=== PATIENT | male | born 1935 | race Two or more races ===

== ENCOUNTER 2023-08-02 09:30 | Inpatient (IN) | payer OTHER ==
[~2023-08-02] VITALS: Ht 157.5 cm; Wt 63.5 kg
[2023-08-02 12:37] LABS: INR 1.13; PARTIAL THROMBOPLASTIN TIME 30.3 SECONDS (22.0-34.0); PROTHROMBIN TIME 11.8 SECONDS (9.0-11.5)
[2023-08-02 12:39] LABS: HEMATOCRIT 30.6 % (39.0-48.0); HEMOGLOBIN 9.1 g/dL (13-16.00); MEAN CORPUSCULAR HEMOGLOBIN 19.1 pg (27.00-32.0); MEAN CORPUSCULAR HGB CONC 29.8 g/dl (32.0-36.0); PLATELET COUNT 768 K/uL (150-450); RED BLOOD COUNT 4.78 M/uL (4.00-6.00); RED CELL DISTRIBUTION WIDTH 19.5 % (11.5-14.5)
[2023-08-02 12:42] LABS: ALBUMIN 2.8 gm/dL (3.4-5.0); BILIRUBIN TOTAL 0.37 mg/dL (0.3-1.2); CALCIUM 9.3 mg/dL (8.5-10.1); CREATININE SERUM 0.68 mg/dL (0.70-1.30); GFR 110.3; GLOBULINA 5.6 G/DL (2.4-3.5); POTASSIUM 4.39 mEq/L (3.5-5.1); TOTAL PROTEIN 8.4 gm/dL (6.4-8.2)
[2023-08-02 14:02] LABS: URINE APPEARANCE Turbid; URINE BILIRRUBIN Negative (NEGATIVE); URINE BLOOD Negative; URINE COLOR Dark Yellow; URINE GLUCOSE Negative (NEGATIVE); URINE LEUKOCYTE Trace; URINE NITRATE Negative; URINE PROTEIN 30 (NEGATIVE)
[2023-08-02 14:07] LABS: URINE BACTERIA 118.4 uL (0.0-1933); URINE EPITHELIAL CELLS 12.3 uL (0.0-38.8); URINE RBC 18.9 uL (0.0-20.8); URINE WBC 3.3 uL (0.0-23.2)
[2023-08-03] MEDS ORDERED: FLONASE16 GM (08:00)
[2023-08-03] MEDS ORDERED: GABAPENTIN800 M1 (08:01)
[2023-08-03] MEDS ORDERED: MELOXICAM15 MG (08:01)
[2023-08-03] MEDS ORDERED: THEOPHYLLINE A300 M1 (08:01)
[2023-08-03] MEDS ORDERED: CARVEDILOL12.5 M1 (08:01)
[2023-08-03] MEDS ORDERED: GABAPENTIN300 M2 (08:01)
[2023-08-03] MEDS ORDERED: MONTELUKAST SOD10 MG (08:01)
[2023-08-03] MEDS ORDERED: ISOSORBIDE MONO30 M2 (08:01)
[2023-08-03 15:14] LABS: CREATININE SERUM 0.55 mg/dL (0.70-1.30); GFR 140.91; POTASSIUM 4.3 mEq/L (3.5-5.1)
[2023-08-04 08:12] LABS: PH,URINE 5.5 (5.0-8.0); URINE APPEARANCE Clear; URINE BACTERIA 113.3 uL (0.0-1933); URINE BILIRRUBIN Negative (NEGATIVE); URINE BLOOD Negative; URINE COLOR Yellow; URINE EPITHELIAL CELLS 12.8 uL (0.0-38.8); URINE GLUCOSE Negative (NEGATIVE); URINE LEUKOCYTE Negative; URINE NITRATE Negative; URINE PROTEIN Negative (NEGATIVE); URINE RBC 5.8 uL (0.0-20.8); URINE WBC 3.3 uL (0.0-23.2)
[2023-08-04 08:13] LABS: ABG PH 7.423 (7.35-7.45); ABG PO2 68.9 mmHg (80-100); ABG pCO2 35.6 mmHg (35-45); SaO2 93.9 %
[2023-08-04 08:14] LABS: BASE EXCESS -1.1 mmol/l; BICARBONATE 22.7 mmol/l (23-25); Tco2 23.8 mmol/l; allen test SATISFACTORY; o2 21 %; puncture site RADIAL RIGHT
[2023-08-04 15:03] LABS: MEAN CORPUSCULAR HEMOGLOBIN 19.7 pg (27.00-32.0); MEAN CORPUSCULAR HGB CONC 30.2 g/dl (32.0-36.0); PLATELET COUNT 643 K/uL (150-450); RED BLOOD COUNT 5.05 M/uL (4.00-6.00); RED CELL DISTRIBUTION WIDTH 20.3 % (11.5-14.5)
[2023-08-04 15:09] LABS: MEAN CELL VOLUME 65.2 fL (80.0-100.00)
[2023-08-04 15:23] LABS: ALBUMIN 2.5 gm/dL (3.4-5.0); BILIRUBIN TOTAL 1.1 mg/dL (0.3-1.2); CALCIUM 8.4 mg/dL (8.5-10.1); CREATININE SERUM 0.57 mg/dL (0.70-1.30); GFR 135.22; GLOBULINA 4.1 G/DL (2.4-3.5); MAGNESIUM 2.2 mg/dL (1.8-2.4); PHOSPHOROUS 3.1 mg/dL (2.5-4.9); POTASSIUM 5.21 mEq/L (3.5-5.1); TOTAL PROTEIN 6.6 gm/dL (6.4-8.2)
[2023-08-04 15:30] LABS: C-REACTIVE PROTEIN 18.4 MG/DL (0.00-0.29)
[2023-08-05 10:59] LABS: HEMOGLOBIN 10.6 g/dL (13-16.00); MEAN CELL VOLUME 66.5 fL (80.0-100.00); MEAN CORPUSCULAR HEMOGLOBIN 20.7 pg (27.00-32.0); MEAN CORPUSCULAR HGB CONC 31.1 g/dl (32.0-36.0); PLATELET COUNT 596 K/uL (150-450); RED CELL DISTRIBUTION WIDTH 22.1 % (11.5-14.5)
[2023-08-05 18:56] LABS: HEMATOCRIT 32.4 % (39.0-48.0); MEAN CELL VOLUME 67.2 fL (80.0-100.00); MEAN CORPUSCULAR HEMOGLOBIN 20.8 pg (27.00-32.0); MEAN CORPUSCULAR HGB CONC 30.9 g/dl (32.0-36.0); PLATELET COUNT 616 K/uL (150-450); RED BLOOD COUNT 4.82 M/uL (4.00-6.00); RED CELL DISTRIBUTION WIDTH 22.6 % (11.5-14.5)
[2023-08-05 19:14] LABS: ALBUMIN 2.1 gm/dL (3.4-5.0); CALCIUM 7.6 mg/dL (8.5-10.1); CREATININE SERUM 0.48 mg/dL (0.70-1.30); GFR 164.88; MAGNESIUM 1.9 mg/dL (1.8-2.4); PHOSPHOROUS 3.8 mg/dL (2.5-4.9); POTASSIUM 4.19 mEq/L (3.5-5.1)
[2023-08-05 19:29] LABS: ABG PH 7.308 (7.35-7.45); ABG PO2 131.2 mmHg (80-100)
[2023-08-05 19:30] LABS: BASE EXCESS -2.4 mmol/l; BICARBONATE 24.5 mmol/l (23-25); SaO2 98.6 %; allen test SATISFACTORY; o2 44 %; puncture site RADIAL LEFT
[2023-08-06 10:37] LABS: ABG PH 7.338 (7.35-7.45)
[2023-08-06 10:38] LABS: ABG PO2 57.9 mmHg (80-100); ABG pCO2 47.7 mmHg (35-45)
[2023-08-06 10:39] LABS: BASE EXCESS -1.3 mmol/l; SaO2 87.6 %; Tco2 26.5 mmol/l
[2023-08-06 10:40] LABS: allen test SATISFACTORY; o2 36 %; puncture site RADIAL LEFT
[2023-08-06 13:43] LABS: MEAN CELL VOLUME 67.8 fL (80.0-100.00); MEAN CORPUSCULAR HEMOGLOBIN 21.2 pg (27.00-32.0); MEAN CORPUSCULAR HGB CONC 31.3 g/dl (32.0-36.0); PLATELET COUNT 538 K/uL (150-450); RED BLOOD COUNT 4.72 M/uL (4.00-6.00); RED CELL DISTRIBUTION WIDTH 22.7 % (11.5-14.5)
[2023-08-06 13:49] LABS: URINE APPEARANCE Clear; URINE BILIRRUBIN Negative (NEGATIVE); URINE BLOOD Trace; URINE COLOR Yellow; URINE GLUCOSE Negative (NEGATIVE); URINE LEUKOCYTE Trace; URINE NITRATE Negative; URINE PROTEIN Negative (NEGATIVE)
[2023-08-06 13:53] LABS: URINE BACTERIA 36.5 uL (0.0-1933); URINE EPITHELIAL CELLS 8.1 uL (0.0-38.8); URINE RBC 10.2 uL (0.0-20.8); URINE WBC 4.9 uL (0.0-23.2)
[2023-08-06 14:13] LABS: ABG pCO2 55.4 mmHg (35-45)
[2023-08-06 14:14] LABS: ABG PO2 87.5 mmHg (80-100); BASE EXCESS -1.9 mmol/l; BICARBONATE 25.7 mmol/l (23-25); SaO2 95.1 %; Tco2 27.4 mmol/l
[2023-08-06 14:15] LABS: allen test SATISFACTORY; o2 50 %; puncture site RADIAL RIGHT
[2023-08-06 14:16] LABS: ALBUMIN 1.9 gm/dL (3.4-5.0); CALCIUM 7.7 mg/dL (8.5-10.1); CREATININE SERUM 0.47 mg/dL (0.70-1.30); GFR 168.93; MAGNESIUM 1.9 mg/dL (1.8-2.4); PHOSPHOROUS 3.6 mg/dL (2.5-4.9); POTASSIUM 3.79 mEq/L (3.5-5.1)
[2023-08-07 08:48] LABS: CALCIUM 7.7 mg/dL (8.5-10.1); CREATININE SERUM 0.53 mg/dL (0.70-1.30); GFR 147.06; MAGNESIUM 1.9 mg/dL (1.8-2.4); PHOSPHOROUS 2.9 mg/dL (2.5-4.9); POTASSIUM 3.84 mEq/L (3.5-5.1)
[2023-08-07 09:38] LABS: HEMATOCRIT 30.7 % (39.0-48.0); MEAN CORPUSCULAR HGB CONC 30.1 g/dl (32.0-36.0); RED BLOOD COUNT 4.48 M/uL (4.00-6.00); RED CELL DISTRIBUTION WIDTH 22.7 % (11.5-14.5)
[2023-08-07 11:02] LABS: HEMOGLOBIN 9.2 g/dL (13-16.00); MEAN CELL VOLUME 68.6 fL (80.0-100.00); MEAN CORPUSCULAR HEMOGLOBIN 20.5 pg (27.00-32.0); PLATELET COUNT 509 K/uL (150-450)
[2023-08-09 09:27] LABS: ABG PH 7.381 (7.35-7.45); ABG PO2 95.3 mmHg (80-100); ABG pCO2 47.8 mmHg (35-45); BASE EXCESS 1.8 mmol/l; BICARBONATE 27.7 mmol/l (23-25); SaO2 97.2 %; Tco2 29.1 mmol/l
[2023-08-09 09:28] LABS: allen test SATISFACTORY; o2 40 %; puncture site RADIAL RIGHT
[2023-08-10 09:17] LABS: HEMATOCRIT 26.2 % (39.0-48.0); MEAN CORPUSCULAR HGB CONC 31.8 g/dl (32.0-36.0); PLATELET COUNT 503 K/uL (150-450); RED BLOOD COUNT 3.85 M/uL (4.00-6.00); RED CELL DISTRIBUTION WIDTH 23.9 % (11.5-14.5)
[2023-08-10 09:18] LABS: HEMOGLOBIN 8.3 g/dL (13-16.00); MEAN CELL VOLUME 68.1 fL (80.0-100.00); MEAN CORPUSCULAR HEMOGLOBIN 21.5 pg (27.00-32.0)
[2023-08-10 09:53] LABS: CALCIUM 7.5 mg/dL (8.5-10.1); CREATININE SERUM 0.46 mg/dL (0.70-1.30); GFR 173.18; MAGNESIUM 1.7 mg/dL (1.8-2.4); PHOSPHOROUS 2.4 mg/dL (2.5-4.9)
[2023-08-10 09:57] LABS: POTASSIUM 2.28 mEq/L (3.5-5.1)
[2023-08-11 17:33] LABS: HEMATOCRIT 33.8 % (39.0-48.0); HEMOGLOBIN 10.7 g/dL (13-16.00); MEAN CELL VOLUME 74.5 fL (80.0-100.00); MEAN CORPUSCULAR HEMOGLOBIN 23.7 pg (27.00-32.0); MEAN CORPUSCULAR HGB CONC 31.8 g/dl (32.0-36.0); PLATELET COUNT 503 K/uL (150-450); RED BLOOD COUNT 4.53 M/uL (4.00-6.00)
[2023-08-11 17:34] LABS: RED CELL DISTRIBUTION WIDTH 27.2 % (11.5-14.5)
[2023-08-11 17:46] LABS: CREATININE SERUM 0.58 mg/dL (0.70-1.30); GFR 132.53; MAGNESIUM 2.3 mg/dL (1.8-2.4); PHOSPHOROUS 3.3 mg/dL (2.5-4.9)
[2023-08-11 17:52] LABS: POTASSIUM 2.85 mEq/L (3.5-5.1)
[2023-08-12 06:07] LABS: HEMATOCRIT 33.9 % (39.0-48.0); MEAN CELL VOLUME 74.5 fL (80.0-100.00); MEAN CORPUSCULAR HEMOGLOBIN 24.2 pg (27.00-32.0); MEAN CORPUSCULAR HGB CONC 32.5 g/dl (32.0-36.0); PLATELET COUNT 519 K/uL (150-450); RED BLOOD COUNT 4.55 M/uL (4.00-6.00)
[2023-08-12 06:47] LABS: BILIRUBIN TOTAL 0.94 mg/dL (0.3-1.2); CALCIUM 7.9 mg/dL (8.5-10.1); CREATININE SERUM 0.58 mg/dL (0.70-1.30); GFR 132.53; GLOBULINA 3.7 G/DL (2.4-3.5); MAGNESIUM 2.6 mg/dL (1.8-2.4); PHOSPHOROUS 3.4 mg/dL (2.5-4.9); POTASSIUM 3.68 mEq/L (3.5-5.1); TOTAL PROTEIN 5.7 gm/dL (6.4-8.2)
[2023-08-14 13:11] LABS: CALCIUM 7.6 mg/dL (8.5-10.1); CREATININE SERUM 0.47 mg/dL (0.70-1.30); GFR 168.93; MAGNESIUM 2.1 mg/dL (1.8-2.4); PHOSPHOROUS 2.2 mg/dL (2.5-4.9)
[2023-08-14 13:13] LABS: HEMATOCRIT 31.4 % (39.0-48.0); HEMOGLOBIN 10.1 g/dL (13-16.00); MEAN CORPUSCULAR HEMOGLOBIN 24.4 pg (27.00-32.0); MEAN CORPUSCULAR HGB CONC 32.1 g/dl (32.0-36.0); PLATELET COUNT 406 K/uL (150-450); RED BLOOD COUNT 4.13 M/uL (4.00-6.00)
[2023-08-14 13:14] LABS: POTASSIUM 2.78 mEq/L (3.5-5.1)
[2023-08-14 13:21] LABS: RED CELL DISTRIBUTION WIDTH 30.5 % (11.5-14.5)
[2023-08-15 08:44] LABS: HEMATOCRIT 28.3 % (39.0-48.0); HEMOGLOBIN 9.2 g/dL (13-16.00); MEAN CELL VOLUME 75.3 fL (80.0-100.00); MEAN CORPUSCULAR HEMOGLOBIN 24.5 pg (27.00-32.0); MEAN CORPUSCULAR HGB CONC 32.6 g/dl (32.0-36.0); PLATELET COUNT 402 K/uL (150-450); RED BLOOD COUNT 3.76 M/uL (4.00-6.00)
[2023-08-15 08:51] LABS: RED CELL DISTRIBUTION WIDTH 30.7 % (11.5-14.5)
[2023-08-17 06:55] LABS: ALBUMIN 1.6 gm/dL (3.4-5.0); BILIRUBIN TOTAL 0.7 mg/dL (0.3-1.2); CALCIUM 7.4 mg/dL (8.5-10.1); CREATININE SERUM 0.45 mg/dL (0.70-1.30); GFR 177.63; GLOBULINA 3.6 G/DL (2.4-3.5); MAGNESIUM 2.1 mg/dL (1.8-2.4); PHOSPHOROUS 2.4 mg/dL (2.5-4.9); TOTAL PROTEIN 5.2 gm/dL (6.4-8.2)
[2023-08-17 07:04] LABS: POTASSIUM 2.75 mEq/L (3.5-5.1)
[2023-08-17 07:29] LABS: HEMOGLOBIN 9.4 g/dL (13-16.00); MEAN CELL VOLUME 75.2 fL (80.0-100.00); MEAN CORPUSCULAR HEMOGLOBIN 24.3 pg (27.00-32.0); MEAN CORPUSCULAR HGB CONC 32.3 g/dl (32.0-36.0); PLATELET COUNT 497 K/uL (150-450); RED BLOOD COUNT 3.86 M/uL (4.00-6.00)
[2023-08-17 07:43] LABS: RED CELL DISTRIBUTION WIDTH 31.5 % (11.5-14.5)
[2023-08-18 07:55] LABS: HEMATOCRIT 30.1 % (39.0-48.0); HEMOGLOBIN 9.5 g/dL (13-16.00); MEAN CELL VOLUME 76.4 fL (80.0-100.00); MEAN CORPUSCULAR HEMOGLOBIN 24.2 pg (27.00-32.0); MEAN CORPUSCULAR HGB CONC 31.7 g/dl (32.0-36.0); PLATELET COUNT 531 K/uL (150-450); RED BLOOD COUNT 3.94 M/uL (4.00-6.00)
[2023-08-18 07:59] LABS: RED CELL DISTRIBUTION WIDTH 31.4 % (11.5-14.5)
[2023-08-18 08:03] LABS: ERYTHROCYTE SEDIMENTATION RATE 90 mm/hr
[2023-08-18 08:27] LABS: CALCIUM 7.4 mg/dL (8.5-10.1); CREATININE SERUM 0.44 mg/dL (0.70-1.30); GFR 182.29; MAGNESIUM 2.1 mg/dL (1.8-2.4); PHOSPHOROUS 2.6 mg/dL (2.5-4.9); POTASSIUM 3.32 mEq/L (3.5-5.1)
[2023-08-18 08:28] LABS: C-REACTIVE PROTEIN 13.4 MG/DL (0.00-0.29)
[2023-08-19 14:22] LABS: ABG PO2 68.7 mmHg (80-100); ABG pCO2 41.3 mmHg (35-45); BASE EXCESS 4.5 mmol/l; BICARBONATE 28.7 mmol/l (23-25); o2 21 %
[2023-08-19 14:23] LABS: allen test SATISFACTORY; puncture site RADIAL RIGHT
[2023-08-19 14:24] LABS: SaO2 94.7 %
[2023-08-20 07:35] LABS: HEMATOCRIT 27.6 % (39.0-48.0); MEAN CELL VOLUME 76.1 fL (80.0-100.00); MEAN CORPUSCULAR HGB CONC 31.9 g/dl (32.0-36.0); PLATELET COUNT 449 K/uL (150-450); RED BLOOD COUNT 3.63 M/uL (4.00-6.00)
[2023-08-20 07:39] LABS: HEMOGLOBIN 8.8 g/dL (13-16.00); MEAN CORPUSCULAR HEMOGLOBIN 24.2 pg (27.00-32.0); RED CELL DISTRIBUTION WIDTH 31.4 % (11.5-14.5)
[2023-08-20 07:44] LABS: CREATININE SERUM 0.41 mg/dL (0.70-1.30); GFR 197.77; MAGNESIUM 2.1 mg/dL (1.8-2.4); PHOSPHOROUS 2.5 mg/dL (2.5-4.9); POTASSIUM 3.28 mEq/L (3.5-5.1)
[2023-08-22 07:39] LABS: HEMATOCRIT 33.9 % (39.0-48.0); HEMOGLOBIN 11.1 g/dL (13-16.00); MEAN CELL VOLUME 76.7 fL (80.0-100.00); MEAN CORPUSCULAR HEMOGLOBIN 25.2 pg (27.00-32.0); MEAN CORPUSCULAR HGB CONC 32.9 g/dl (32.0-36.0); PLATELET COUNT 406 K/uL (150-450); RED BLOOD COUNT 4.41 M/uL (4.00-6.00)
[2023-08-22 07:40] LABS: RED CELL DISTRIBUTION WIDTH 28.4 % (11.5-14.5)
[2023-08-26] MEDS ORDERED: TOPROL XL50 M1 PO (18:15)
[2023-08-26] MEDS ORDERED: AMIODARONE HCL200 MG PO (18:16)
[2023-08-26] MEDS ORDERED: COZAAR25 MG PO (18:17)
== END 2023-08-26 19:39 | disposition home or self-care (01) | DRG 826 ==
LOC: ER 09:30 → SURG 19:56 → ICU 08-06 14:27 → SURH 08-18 13:46
PROVIDERS: Emergency Medicine; Internal Medicine; Internal Medicine Geriatric Medicine; Internal Medicine Infectious Disease; Specialist; ADMIT Surgery; ATTEND Surgery
PROC: BW21YZZ Computerized Tomography (CT Scan) of Abdomen and Pelvis using Other Contrast (ICD-10-PCS; 2023-08-02)
PROC: B246ZZZ Ultrasonography of Right and Left Heart (ICD-10-PCS; 2023-08-02)
PROC: 3E0F7GC Introduction of Other Therapeutic Substance into Respiratory Tract, Via Natural or Artificial Opening (ICD-10-PCS; 2023-08-02)
PROC: 02HV33Z Insertion of Infusion Device into Superior Vena Cava, Percutaneous Approach (ICD-10-PCS; 2023-08-03)
PROC: 30233N1 Transfusion of Nonautologous Red Blood Cells into Peripheral Vein, Percutaneous Approach (ICD-10-PCS; 2023-08-03)
PROC: 0DBP4ZZ Excision of Rectum, Percutaneous Endoscopic Approach (ICD-10-PCS; 2023-08-05)
PROC: 0D1E4Z4 Bypass Large Intestine to Cutaneous, Percutaneous Endoscopic Approach (ICD-10-PCS; 2023-08-05)
PROC: 07BC4ZZ Excision of Pelvis Lymphatic, Percutaneous Endoscopic Approach (ICD-10-PCS; 2023-08-05)
PROC: 0DT84ZZ Resection of Small Intestine, Percutaneous Endoscopic Approach (ICD-10-PCS; 2023-08-05)
PROC: 4A12X4Z Monitoring of Cardiac Electrical Activity, External Approach (ICD-10-PCS; 2023-08-05)
PROC: 0DTN4ZZ Resection of Sigmoid Colon, Percutaneous Endoscopic Approach (ICD-10-PCS; principal; 2023-08-05 13:00)
PROC: 5A0935A Assistance with Respiratory Ventilation, Less than 24 Consecutive Hours, High Flow/Velocity Cannula (ICD-10-PCS; 2023-08-07)
PROC: BW21ZZZ Computerized Tomography (CT Scan) of Abdomen and Pelvis (ICD-10-PCS; 2023-08-12)
DX: C80.1 Malignant (primary) neoplasm, unspecified (principal); I50.23 Acute on chronic systolic (congestive) heart failure; J44.1 Chronic obstructive pulmonary disease with (acute) exacerbation; C78.7 Secondary malignant neoplasm of liver and intrahepatic bile duct; K59.09 Other constipation; D50.0 Iron deficiency anemia secondary to blood loss (chronic); I11.0 Hypertensive heart disease with heart failure; I48.91 Unspecified atrial fibrillation